=== PATIENT | male | born 1990 | race Two or more races ===

== ENCOUNTER 2020-11-13 18:33 | Emergency (ER) | payer OTHER ==
[~2020-11-13] VITALS: Ht 172.7 cm; Wt 89.8 kg
[2020-11-13] MEDS ORDERED: ORPHENADRINE C100 MG PO (22:20)
[2020-11-13] MEDS ORDERED: KETO10TA2 PO (22:20)
== END 2020-11-13 22:59 | disposition home or self-care (01) ==
LOC: ER 18:33
DX: M54.5 Low back pain (principal)

== ENCOUNTER 2022-11-08 03:11 | Emergency (ER) | payer OTHER ==
[~2022-11-08] VITALS: Ht 172.7 cm; Wt 81.6 kg
[~2022-11-08 03:11] MED LIST: KETO10TA2; KETO10TA2 PO; ORPHENADRINE C100 MG PO
[2022-11-08] MEDS ORDERED: NABUMETONE750 MG PO (07:44)
== END 2022-11-08 09:09 ==
LOC: ER 03:11
DX: M25.511 Pain in right shoulder (principal)

== ENCOUNTER 2024-09-27 11:46 | Emergency (ER) | payer OTHER ==
[~2024-09-27] VITALS: Ht 172.7 cm; Wt 80.7 kg
[~2024-09-27 11:46] MED LIST changes: +NABUMETONE750 MG PO
[2024-09-27] MEDS ORDERED: KETOROLAC TROMETHAMINE 60 MG VIAL IM ONE (16:45)
[2024-09-27] MEDS ORDERED: ORPHENADRINE CITRATE 30 MG/ML AMPUL IM ONE (16:45)
== END 2024-09-27 17:49 | disposition home or self-care (01) ==
LOC: ER 11:48
DX: M79.661 Pain in right lower leg (principal)

== ENCOUNTER 2025-09-15 09:53 | Emergency (ER) | payer OTHER ==
[~2025-09-15] VITALS: Ht 172.7 cm; Wt 81.6 kg
[2025-09-15] MEDS ORDERED: PANTOPRAZOLE SODIUM 40 MG/VIAL VIAL IV ONE (11:00)
[2025-09-15] MEDS ORDERED: ONDANSETRON HCL 2 MG/ML VIAL IV STA (11:00)
[2025-09-15] MEDS ORDERED: 0.9 % SODIUM CHLORIDE 1,000 ML IV STA ×2 (11:00)
[2025-09-15] MEDS ORDERED: ONDANSETRON HCL 2 MG/ML VIAL ONE (11:43)
[2025-09-15 11:54] LABS: BASO % 0.2 % (0.1-1.2); EOS # 0.00 (0.04-0.54); EOS % 0.0 % (0.7-7.0); LYMPH # 1.01 (1.18-3.74); LYMPH % 6.2 % (19.3-53.1); MEAN PLATELET VOLUME 9.20 fl (9.4-12.4); MONO # 0.56 (0.24-0.82); MONO % 3.4 % (4.7-12.5); NEUT # 14.63 (1.56-6.13); NEUT % 89.6 % (34.0-71.1); RED CELL DISTRIBUTION WIDTH 12.9 % (11.6-14.4)
[2025-09-15 12:36] LABS: INR 1.02
[2025-09-15 12:45] LABS: ALT/SGPT 39.0 U/L (12-78); AST/SGOT 41.0 U/L (15-37); BILIRUBIN TOTAL 0.81 mg/dL (0.3-1.2); BILIRUBIN,CONJUGATED 0.24 mg/dL (0.0-0.2); BUN CREA RATIO 19.0 (7.0-25.0); CREATININE SERUM 0.85 mg/dL (0.70-1.30); GFR 103.81; GLUCOSE FASTING 83.0 mg/dL (65-100); OSMOLALITY SERUM 285.0 MOSM/KG (275-295)
[2025-09-15 14:08] LABS: URINE APPEARANCE Clear; URINE BILIRRUBIN Negative (NEGATIVE); URINE BLOOD Negative; URINE COLOR Dark Yellow; URINE GLUCOSE Negative (NEGATIVE); URINE LEUKOCYTE Negative; URINE NITRATE Negative; URINE UROBILINOGEN 0.2 E.U./dl
[2025-09-15 14:13] LABS: URINE BACTERIA 154.7 uL (0.0-1933); URINE EPITHELIAL CELLS 4.7 uL (0.0-38.8); URINE RBC 3.3 uL (0.0-20.8); URINE WBC 7.3 uL (0.0-23.2)
[2025-09-15 14:23] LABS: URINE CAST 1.31 uL (0.0-1.40); URINE KETONE 40 (NEGATIVE); URINE PROTEIN 100 (NEGATIVE)
== END 2025-09-15 15:53 | disposition home or self-care (01) ==
LOC: ER 09:54
PROVIDERS: General Practice
DX: K29.70 Gastritis, unspecified, without bleeding (principal); R10.13 Epigastric pain; R11.10 Vomiting, unspecified
CPT/HCPCS: 36415; 74177; Q9965